=== PATIENT | female | born 1940 | race Caucasian/White ===

== ENCOUNTER 2016-05-20 10:56 | Emergency (ER) | payer MEDICARE, BC ==
[~2016-05-20] VITALS: Ht 152.4 cm; Wt 54.0 kg
[~2016-05-20 10:56] MED LIST: ACTO150T PO; BIOTCAP PO; FOLI1 PO; LEVO50TA4 PO; LORA-392 PO; PACE200T4 PO; RIVA20 PO; VITA-13
[2016-05-20 11:00] VITALS: BP 108/51; PULSE 71; RESP 18; TEMP 97.8; O2SAT 96
[2016-05-20] MEDS ORDERED: DICL75TA PO (11:23)
[2016-05-20] MEDS ORDERED: BIOT1SUB SL (11:23)
[2016-05-20] MEDS ORDERED: LORA1TAB12 PO (11:23)
[2016-05-20] MEDS ORDERED: CALC600T13 PO (11:23)
[2016-05-20] MEDS ORDERED: HYDR25TA5 PO (11:23)
[2016-05-20] MEDS ORDERED: LEUC5TAB PO (11:23)
[2016-05-20] MEDS ORDERED: TOFA1TAB PO (11:23)
[2016-05-20] MEDS ORDERED: ASPI81CH CHEW (11:23)
[2016-05-20] MEDS ORDERED: LEVO50TA4 PO (11:23)
[2016-05-20] MEDS ORDERED: D400400C PO (11:23)
[2016-05-20] MEDS ORDERED: METHPOW IM (11:23)
[2016-05-20] MEDS ORDERED: FOLI1TAB4 PO (11:23)
[2016-05-20] MEDS ORDERED: LISI40TA PO (11:23)
--- NOTE | 2016-05-20 11:23 | PD ---
HPI Chief Complaint: Fall Time Seen by Provider: 11:17 Travel History International Travel<30 days: No Contact w/Intl Traveler<30days: No Traveled to known affect area: No History of Present Illness HPI This patient had a fall last night. She tripped over a step and landed on outstretched left wrist. She complains of left wrist pain and swelling. It's worse with movement. She did not strike her head and has no head or neck pain. Severity is moderate. Duration is one day. She takes no blood thinners and has no orthopedist. PFSH Past Medical History Arthritis: Yes (RA) Atrial Fibrillation: Yes (ABLATION 08/2012, 05/27/13, HX OF CARDIOVERSION) Autoimmune Disease: Yes (RA) Heart Rhythm Problems: Yes (Afib) Cancer: Yes (cervical ca) Cardiovascular Problems: Yes (AFIB/ ABLASION) High Cholesterol: No Chemotherapy: No Chest Pain: No Congestive Heart Failure: No Diminished Hearing: No Endocrine: No Gastrointestinal Disorders: No Genitourinary: No Hypertension: Yes Immune Disorder: No Implanted Vascular Access Dvce: No Musculoskeletal: Yes Neurologic: No Psychiatric: No Reproductive: No Respiratory: No Immunizations Current: Yes Radiation Therapy: No Influenza Vaccination: Yes ?: Not Menopausal: Yes : 1 Para: 1 Past Surgical History Abdominal Surgery: No Cardiac Surgery: Yes (AFIB ABLATION X'S 2 ) Ear Surgery: No Endocrine Surgery: No Eye Surgery: No Genitourinary Surgery: No Gynecologic Surgery: Yes Hysterectomy: Yes (PARTIAL/CERVICAL CANCER) Neurologic Surgery: No Oral Surgery: No Thoracic Surgery: No Other Surgery: Yes Social History Alcohol Use: No Tobacco Use: No Substance Use: No Allergies-Medications (Allergen,Severity, Reaction): Coded Allergies: Advil (Verified Allergy, Severe, Anaphylaxis, 05/20/16) Codeine (Verified Allergy, Severe, NAUSEA, 05/20/16) Penicillin (Verified Allergy, Severe, HIVES, 05/20/16) Reported Meds & Prescriptions Reported Meds & Active Scripts Active Reported Xeljanz Xr (Tofacitinib ER) 11 Mg Tab 11 Mg PO DAILY Diclofenac Sodium DR (Diclofenac Sodium) 75 Mg Tabdr 75 Mg PO BID Lorazepam 1 Mg Tab 1 Mg PO TID PRN Leucovorin (Leucovorin Calcium) 5 Mg Tab 5 Mg PO TWICE WEEKLY Methotrexate 1 Pow Pow 15 Mg IM WEEKLY Folate (Folic Acid) 1 Mg Tab 1 Mg PO DAILY 6 days a week Calcium 600 Mg Tab 600 Mg PO DAILY Vitamin D3 400 (Cholecalciferol) 400 Unit Cap 800 Mg PO BID Biotin 5,000 Mcg Subl 5,000 Mcg SL Levothyroxine (Levothyroxine Sodium) 50 Mcg Tab 50 Mcg PO DAILY Aspirin 81 Mg Chew 81 Mg CHEW DAILY Lisinopril 40 Mg Tab 40 Mg PO DAILY Hydrochlorothiazide 25 Mg Tab 25 Mg PO DAILY Review of Systems General / Constitutional: No: Fever Eyes: No: Visual changes HENT: No: Headaches Cardiovascular: No: Chest Pain or Discomfort Respiratory: No: Shortness of Breath Gastrointestinal: No: Abdominal Pain Genitourinary: No: Dysuria Musculoskeletal: Positive: Arthralgias, Limited ROM, Pain Skin: No Rash Neurologic: No: Weakness Psychiatric: No: Depression Endocrine: No: Polydipsia Hematologic/Lymphatic: No: Easy Bruising Physical Exam Narrative GENERAL: Thin elderly well-developed patient in no apparent distress. SKIN: Warm and dry. HEAD: Atraumatic. Normocephalic. EYES: Pupils equal and round. No scleral icterus. No injection or drainage. ENT: No nasal bleeding or discharge. Mucous membranes pink and moist. NECK: Trachea midline. No JVD. CARDIOVASCULAR: Regular rate and rhythm. No murmur appreciated. RESPIRATORY: No accessory muscle use. Clear to auscultation. Breath sounds equal bilaterally. GASTROINTESTINAL: Abdomen soft, non-tender, nondistended. Hepatic and splenic margins not palpable. MUSCULOSKELETAL: Patient has swelling and slight deformity to the left wrist. There is ecchymosis and it is tender. No clubbing. No cyanosis. No edema. NEUROLOGICAL: Awake and alert. No obvious cranial nerve deficits. Motor grossly within normal limits. Normal speech. PSYCHIATRIC: Appropriate mood and affect; insight and judgment normal. Data Data Last Documented VS Vital Signs Date Time Temp Pulse Resp B/P Pulse Ox O2 Delivery O2 Flow Rate FiO2 05/20/16 11:00 97.8 71 18 108/51 96 Orders Wrist, Complete ([id number]) (05/20/16 ) Splint Or Brace Apply/Monitor (05/20/16 11:59) MDM Medical Decision Making Medical Screen Exam Complete: Yes Emergency Medical Condition: Yes Medical Record Reviewed: Yes Differential Diagnosis Wrist fracture, wrist dislocation, contusion Narrative Course I have reviewed the patient's electronic medical record. I reviewed her left wrist x-rays which show a comminuted distal radius fracture with minimal displacement I placed her in a left wrist sugar tong Removed her wedding ring Pain medicine written She will follow with orthopedist Diagnosis Primary Impression: Distal radius fracture, left Qualified Code: S52.532A - Closed Colles' fracture of left radius, initial encounter Additional Instructions: Follow-up with orthopedist Ice and elevate left wrist and wear splint The patient was warned about potential sedation for the medications they will receive on prescription. Med/Other Pt SpecificInfo: Prescription(s) given Scripts Oxycodone-Acetaminophen (Percocet)5-325 mg Tab1 Tab PO Q6H PRN (PAIN) #25 TAB Ref 0 Prov:Troy Sainz MD 05/20/16 Disposition: 01 DISCHARGE HOME Condition: Stable Troy Sainz MD May 20, 2016 11:23
--- NOTE | 2016-05-20 11:47 | RADHPO ---
EXAM DATE/TIME: 05/20/2016 11:25 [facility] COMPARISON: No previous studies available for comparison. INDICATIONS : Left wrist pain/swelling/bruising post fall. MEDICAL HISTORY : A-fib. SURGICAL HISTORY : None. ENCOUNTER: Initial ACUITY: 2 days PAIN SCORE: 10/10 LOCATION: Left wrist FINDINGS: There is a comminuted intra-articular fracture involving the distal radius. The fracture fragments ar e not significantly displaced. There is no joint dislocation. There is moderate diffuse primary degen erative changes involving the wrist. There is diffuse soft tissue swelling. CONCLUSION: Comminuted intra-articular fracture involving the distal radius. Jermain Soto MD on May 20, 2016 at 11:45 Board Certified Radiologist. This report was verified electronically.
[2016-05-20] MEDS ORDERED: PERC5TAB12 PO (12:02)
== END 2016-05-20 12:44 | disposition home or self-care (01) ==
LOC: PHED 10:56
DX: S52.502A Unspecified fracture of the lower end of left radius, initial encounter for closed fracture (principal); I48.91 Unspecified atrial fibrillation; M06.9 Rheumatoid arthritis, unspecified; I10 Essential (primary) hypertension; W10.8XXA Fall (on) (from) other stairs and steps, initial encounter; Y93.9 Activity, unspecified; Y92.9 Unspecified place or not applicable; Y99.9 Unspecified external cause status
CPT/HCPCS: 29125; 73110

== ENCOUNTER 2017-04-05 13:35 | Inpatient (IN) | payer MEDICARE, BC ==
[~2017-04-05] VITALS: Ht 152.4 cm; Wt 55.6 kg
[2017-04-05] VITALS (15 sets, daily range): BP systolic 90–217; BP diastolic 46–111; PULSE 46–150; RESP 16–22; TEMP 98.4–98.9; O2SAT 93–100
[~2017-04-05 13:35] MED LIST changes: -ACTO150T PO; +ASPI-516 CHEW; +BIOT1SUB SL; -BIOTCAP PO; +CALC600T13 PO; +D400400C PO; +DICL75TA PO; -FOLI1 PO; +FOLI1TAB4 PO; +HYDR25TA5 PO; +LEUC5TAB PO; +LISI40TA PO; -LORA-392 PO; +LORA1TAB12 PO; +METHPOW IM; -PACE200T4 PO; +PERC5TAB12 PO; -RIVA20 PO; +TOFA1TAB PO; -VITA-13
[2017-04-05] MEDS ORDERED: SODIUM CHLORIDE 0.9% FLUSH 10 ML FLUSH IV FLUSH PRN ×2 (14:00→16:15)
[2017-04-05] MEDS ORDERED: DILTIAZEM HCL 25 MG/5 ML VIAL IV PUSH ONE (14:00)
[2017-04-05] MEDS ORDERED: SODIUM CHLORIDE 0.9% FLUSH 10 ML FLUSH IVF PRN (14:00)
--- NOTE | 2017-04-05 14:05 | PD ---
HPI Chief Complaint: Cardiac Complaint Time Seen by Provider: 13:49 Travel History International Travel<30 days: No Contact w/Intl Traveler<30days: No Traveled to known affect area: No History of Present Illness HPI 76-year-old female presents to the emergency department for evaluation of atrial fibrillation. Patient states she has been in and out of A. fib for several hours, since 11 AM. Patient states she is currently on amiodarone as well as Cardizem. She took 2 doses of her amiodarone and her Cardizem this morning. She states that she has been going in and out of it constantly. This is unusual for her. Patient's pharmacy clinical specialist is Dr. Us. Patient denies any fevers or chills. No headache. She denies any chest pain or shortness of breath. No abdominal pain. No nausea, vomiting, diarrhea. Her only complaint at this time is palpitations. Upon my exam, her heart rate is 150. Moderate severity. No exacerbating or alleviating factors. PFSH Past Medical History Arthritis: Yes (RA) Atrial Fibrillation: Yes (ABLATION 08/2012, 05/27/13, HX OF CARDIOVERSION) Autoimmune Disease: Yes (RA) Heart Rhythm Problems: Yes (Afib) Cancer: Yes (cervical ca) Cardiovascular Problems: Yes (AFIB/ ABLASION) High Cholesterol: No Chemotherapy: No Chest Pain: No Congestive Heart Failure: No Diminished Hearing: No Endocrine: No Gastrointestinal Disorders: No Genitourinary: No Hypertension: Yes Immune Disorder: No Implanted Vascular Access Dvce: No Musculoskeletal: Yes Neurologic: No Psychiatric: No Reproductive: No Respiratory: No Immunizations Current: Yes Radiation Therapy: No ?: Not Menopausal: Yes : 1 Para: 1 Past Surgical History Abdominal Surgery: No Cardiac Surgery: Yes (AFIB ABLATION X'S 2 ) Ear Surgery: No Endocrine Surgery: No Eye Surgery: No Genitourinary Surgery: No Gynecologic Surgery: Yes Hysterectomy: Yes (PARTIAL/CERVICAL CANCER) Neurologic Surgery: No Oral Surgery: No Thoracic Surgery: No Other Surgery: Yes Social History Alcohol Use: No Tobacco Use: No Substance Use: No Allergies-Medications (Allergen,Severity, Reaction): Coded Allergies: codeine (Unverified Allergy, Severe, NAUSEA, 04/05/17) ibuprofen (Unverified Allergy, Severe, Anaphylaxis, 12/17/17) penicillin G (Unverified Allergy, Severe, HIVES, 04/05/17) Reported Meds & Prescriptions Reported Meds & Active Scripts Active Reported Amiodarone (Amiodarone HCl) 200 Mg Tab 200 Mg PO DAILY Xeljanz Xr (Tofacitinib ER) 11 Mg Tab 11 Mg PO DAILY Lorazepam 1 Mg Tab 1 Mg PO TID PRN Vitamin D3 400 (Cholecalciferol) 400 Unit Cap 800 Mg PO BID Biotin 5,000 Mcg Subl 5,000 Mcg SL Levothyroxine (Levothyroxine Sodium) 50 Mcg Tab 50 Mcg PO DAILY Aspirin 81 Mg Chew 81 Mg CHEW DAILY Lisinopril 40 Mg Tab 40 Mg PO DAILY Hydrochlorothiazide 25 Mg Tab 25 Mg PO DAILY Review of Systems Except as stated in HPI: all other systems reviewed are Neg Physical Exam Narrative GENERAL: Well-nourished, well-developed female patient, ambulatory. Afebrile. SKIN: Focused skin assessment warm/dry. HEAD: Normocephalic. Atraumatic. EYES: No scleral icterus. No injection or drainage. NECK: Supple, trachea midline. No JVD or lymphadenopathy. CARDIOVASCULAR: Regular rate and rhythm without murmurs, gallops, or rubs. Bilateral radial and pedal pulses are 2+. RESPIRATORY: Breath sounds equal bilaterally. No accessory muscle use. Lungs sounds are clear to auscultation GASTROINTESTINAL: Abdomen soft, non-tender, nondistended. MUSCULOSKELETAL: No cyanosis, or edema. BACK: Nontender without obvious deformity. No CVA tenderness. Data Data Last Documented VS Vital Signs Date Time Temp Pulse Resp B/P (MAP) Pulse Ox O2 Delivery O2 Flow Rate FiO2 04/05/17 14:42 91 17 100 04/05/17 14:19 Room Air 04/05/17 13:37 98.6 Orders Orders Electrocardiogram (04/05/17 13:59) Basic Metabolic Panel (Bmp) (04/05/17 13:59) Ckmb (Isoenzyme) Profile (04/05/17 13:59) Complete Blood Count With Diff (04/05/17 13:59) Magnesium (Mg) (04/05/17 13:59) Prothrombin Time / Inr (Pt) (04/05/17 13:59) Act Partial Throm Time (Ptt) (04/05/17 13:59) Troponin I (04/05/17 13:59) Chest, Single Ap (04/05/17 13:59) Ecg Monitoring (04/05/17 13:59) Bilateral Bp Monitoring (04/05/17 13:59) Iv Access Insert/Monitor (04/05/17 13:59) Oximetry (04/05/17 13:59) Oxygen Administration (04/05/17 13:59) Sodium Chloride 0.9% Flush (Ns Flush) (04/05/17 14:00) Diltiazem Inj (Cardizem Inj) (04/05/17 14:00) Sodium Chloride 0.9% Flush (Ns Flush) (04/05/17 14:00) CKMB (04/05/17 14:10) CKMB% (04/05/17 14:10) Diltiazem Inj (Cardizem Inj) (04/05/17 15:00) Diltiazem Inj (Cardizem Inj) (04/05/17 15:45) Admit Order (Ed Use Only) (04/05/17 15:53) Labs Laboratory Tests Test 04/05/17 14:10 White Blood Count 6.6 TH/MM3 Red Blood Count 3.84 MIL/MM3 Hemoglobin 13.0 GM/DL Hematocrit 37.9 % Mean Corpuscular Volume 98.7 FL Mean Corpuscular Hemoglobin 33.9 PG Mean Corpuscular Hemoglobin Concent 34.3 % Red Cell Distribution Width 15.0 % Platelet Count 309 TH/MM3 Mean Platelet Volume 8.0 FL Neutrophils (%) (Auto) 66.5 % Lymphocytes (%) (Auto) 18.7 % Monocytes (%) (Auto) 13.1 % Eosinophils (%) (Auto) 0.8 % Basophils (%) (Auto) 0.9 % Neutrophils # (Auto) 4.4 TH/MM3 Lymphocytes # (Auto) 1.2 TH/MM3 Monocytes # (Auto) 0.9 TH/MM3 Eosinophils # (Auto) 0.1 TH/MM3 Basophils # (Auto) 0.1 TH/MM3 CBC Comment DIFF FINAL Differential Comment Prothrombin Time 10.0 SEC Prothromb Time International Ratio 1.0 RATIO Activated Partial Thromboplast Time 25.2 SEC Blood Urea Nitrogen 12 MG/DL Creatinine 1.10 MG/DL Random Glucose 99 MG/DL Calcium Level 9.2 MG/DL Magnesium Level 2.1 MG/DL Sodium Level 127 MEQ/L Potassium Level 3.9 MEQ/L Chloride Level 93 MEQ/L Carbon Dioxide Level 25.9 MEQ/L Anion Gap 8 MEQ/L Estimat Glomerular Filtration Rate 49 ML/MIN Total Creatine Kinase 269 U/L Creatine Kinase MB 4.2 NG/ML Creatine Kinase MB % 1.6 % Troponin I LESS THAN 0.02 NG/ML MDM Medical Decision Making Medical Screen Exam Complete: Yes Emergency Medical Condition: Yes Medical Record Reviewed: Yes Interpretation(s) chest x-ray - CONCLUSION: Normal examination. Differential Diagnosis A. fib with RVR versus SVT versus arrhythmia versus ACS Narrative Course 36-year-old female presents to the emergency department for evaluation of palpitations, feeling she's has been going in and out of A. fib this morning. EKG shows possible A. fib/flutter, heart rate 140. CBC, BMP, CK, troponin, magnesium, PTT, PTT/INR, chest x-ray ordered and pending. Patient is given Cardizem 0.25 mg/kg. CBC shows no acute abnormality. BMP shows hyponatremia of 127. CK is 269. Troponin is less than 0.02. Magnesium is 2.1. Coags are unremarkable. Chest x -ray is normal. Patient's heart rate initially went to the 90s. However, shortly after, her heart rate went up to 140. Patient is given second dose of Cardizem. She is given 20 mg IV. Cardizem drip was initiated. [facility] is paged for admission. Dr. Hathaway accepted admission. Diagnosis Primary Impression: Atrial fibrillation with RVR Admitting Information Admitting Physician Requests: Admit Gilda Bell Apr 05, 2017 14:05
--- NOTE | 2017-04-05 14:13 | RADRPT ---
EXAM DATE/TIME: 04/05/2017 14:07 [facility] COMPARISON: CHEST SINGLE AP, March 29, 2015, 11:27. INDICATIONS : Chest pain MEDICAL HISTORY : Afib SURGICAL HISTORY : None. ENCOUNTER: Initial ACUITY: 1 day PAIN SCORE: 0/10 LOCATION: Bilateral chest FINDINGS: A single view of the chest demonstrates the lungs to be symmetrically aerated without evidence of mas s, infiltrate or effusion. The cardiomediastinal contours are unremarkable. Osseous structures are intact. CONCLUSION: Normal examination. Mark Llanes MD on April 05, 2017 at 14:11 Board Certified Radiologist. This report was verified electronically.
[2017-04-05] MEDS ORDERED: AMIO200T PO (14:25)
[2017-04-05 14:27] LABS: AUTOMATED NEUTROPHIL # 4.4 TH/MM3 (1.8-7.7); BASOPHIL # 0.1 TH/MM3 (0-0.2); BASOPHIL % 0.9 % (0.0-2.0); EOSINOPHIL # 0.1 TH/MM3 (0-0.4); EOSINOPHIL % 0.8 % (0.0-4.0); HEMATOCRIT 37.9 % (35.0-46.0); HEMO FLAGS DIFF FINAL; LYMPH % 18.7 % (9.0-44.0); LYMPHOCYTE # 1.2 TH/MM3 (1.0-4.8); MEAN CELL VOLUME 98.7 FL (80.0-100.0); MEAN CORPUSCULAR HEMOGLOBIN 33.9 PG (27.0-34.0); MEAN CORPUSCULAR HGB CONC 34.3 % (32.0-36.0); MONO % 13.1 % (0.0-8.0); NEUT % 66.5 % (16.0-70.0); PLATELET COUNT 309 TH/MM3 (150-450); RED BLOOD COUNT 3.84 MIL/MM3 (4.00-5.30); WHITE BLOOD COUNT 6.6 TH/MM3 (4.0-11.0)
[2017-04-05 14:35] LABS: APTT (PATIENT) 25.2 SEC (24.3-30.1)
[2017-04-05 14:44] LABS: CREATINE KINASE 269 U/L (26-192)
[2017-04-05 14:52] LABS: ANION GAP 8 MEQ/L (5-15); BICARBONATE 25.9 MEQ/L (21.0-32.0); BLOOD UREA NITROGEN 12 MG/DL (7-18); CHLORIDE 93 MEQ/L (98-107); GLOMERULAR FILTRATION RATE 49 ML/MIN (>89); MAGNESIUM 2.1 MG/DL (1.5-2.5); POTASSIUM 3.9 MEQ/L (3.5-5.1); SODIUM (NA) 127 MEQ/L (136-145)
[2017-04-05 14:56] LABS: CKMB 4.2 NG/ML (0.5-3.6)
[2017-04-05] MEDS ORDERED: DILTIAZEM INJ 125 MG in SODIUM CHLORIDE 0.9% INJ 100 ML IV PRN (15:00)
[2017-04-05] MEDS ORDERED: DILTIAZEM HCL 50 MG/10 ML VIAL IV PUSH ONE (15:15)
[2017-04-05] MEDS ORDERED: DILTIAZEM HCL 25 MG/5 ML VIAL IV ONE (15:45)
--- NOTE | 2017-04-05 16:05 | HHI.HP ---
HPI Service [facility] Primary Care Physician Donavan Gonzalez M.D. Admission Diagnosis atrial fibrillation with RVR Diagnoses: (1) Atrial fibrillation with RVR Diagnosis: Principal Chief Complaint: In and out of afib Travel History International Travel<30 Days: No Contact w/Intl Traveler <30 Da: No Traveled to Known Affected Are: No History of Present Illness Written by Kasie Stout, acting as scribe for Dr. Hathaway on 04/05/17 at 17:14. 76-year-old female with past medical history significant for atrial fibrillation, hypertension, hypothyroidism, cervical cancer, and rheumatoid arthritis. Patient has undergone 2 ablations with eversion in the past. Patient reports that for the past week she has felt she has gone into atrial fibrillation with no prolonged duration. However since 11 AM this morning felt as if this was not resolving so she came to the ED for evaluation. Patient reports that during episodes she feels tired but no lightheadedness, syncope, shortness of breath, or chest pains. She states that her regular supervisor grower is Dr. Us who recently saw her this past Thursday and adjusted her blood pressure medication her blood pressure medications. Patient repots she was previously anticoagulated on serial toe, however was switched over to 81 mg of aspirin daily her supervisor grower. She denies any weakness or visual changes. She denies any other changes to her medications. Patient is seen and examined in ED stretcher in no acute distress, no shortness of breath, chest pains, nausea, vomiting, or diarrhea. Denies recent illness fever or chills. Review of Systems Cardiovascular: COMPLAINS OF: Palpitations Except as stated in HPI: all other systems reviewed are Neg Past Family Social History Past Medical History Atrial fibrillation with cardioversion and ablation in the past HTN Hypothyroidism Cervical cancer in 1972 RA Past Surgical History Ablation in August 2012 and May 2013 Reported Medications Reported Meds & Active Scripts Active Reported Amiodarone (Amiodarone HCl) 200 Mg Tab 200 Mg PO DAILY Xeljanz Xr (Tofacitinib ER) 11 Mg Tab 11 Mg PO DAILY Lorazepam 1 Mg Tab 1 Mg PO TID PRN Vitamin D3 400 (Cholecalciferol) 400 Unit Cap 800 Mg PO BID Biotin 5,000 Mcg Subl 5,000 Mcg SL Levothyroxine (Levothyroxine Sodium) 50 Mcg Tab 50 Mcg PO DAILY Aspirin 81 Mg Chew 81 Mg CHEW DAILY Lisinopril 40 Mg Tab 40 Mg PO DAILY Hydrochlorothiazide 25 Mg Tab 25 Mg PO DAILY Allergies: Coded Allergies: codeine (Unverified Allergy, Severe, NAUSEA, 04/05/17) ibuprofen (Unverified Allergy, Severe, Anaphylaxis, 04/05/17) penicillin G (Unverified Allergy, Severe, HIVES, 04/05/17) Family History Mother: [email or web address] Brother: kimberley Physical Exam Vital Signs Vital Signs Date Time Temp Pulse Resp B/P (MAP) Pulse Ox O2 Delivery O2 Flow Rate FiO2 04/05/17 14:42 91 17 100 04/05/17 14:19 99 Room Air 04/05/17 14:19 93 18 158/75 (102) 98 Room Air 04/05/17 13:37 98.6 150 22 217/111 (146) 99 Room Air Physical Exam GENERAL: This is a well-nourished, well-developed patient, in no apparent distress. SKIN: Small scattered ecchymoses over bilateral forearms and lower legs. Cool and dry. HEAD: Atraumatic. Normocephalic. No temporal or scalp tenderness. EYES: Pupils equal round and reactive. Extraocular motions intact. No scleral icterus. No injection or drainage. ENT: Nose without bleeding, purulent drainage or septal hematoma. Uvula midline. Airway patent. NECK: Trachea midline. No JVD or lymphadenopathy. Supple. CARDIOVASCULAR: Irregular rate and rhythm without murmurs, gallops, or rubs. RESPIRATORY: Clear to auscultation. Breath sounds equal bilaterally. No wheezes , rales, or rhonchi. GASTROINTESTINAL: Abdomen soft, non-tender, nondistended. MUSCULOSKELETAL: Extremities without clubbing, cyanosis, or edema. No joint tenderness, effusion, or edema noted, bilateral hand joint changes from RA. NEUROLOGICAL: Awake and alert. Cranial nerves II through XII intact. Motor and sensory grossly within normal limits. Five out of 5 muscle strength in all muscle groups. Normal speech, no facial droop noted. Laboratory Laboratory Tests Test 04/05/17 14:10 White Blood Count 6.6 Red Blood Count 3.84 Hemoglobin 13.0 Hematocrit 37.9 Mean Corpuscular Volume 98.7 Mean Corpuscular Hemoglobin 33.9 Mean Corpuscular Hemoglobin Concent 34.3 Red Cell Distribution Width 15.0 Platelet Count 309 Mean Platelet Volume 8.0 Neutrophils (%) (Auto) 66.5 Lymphocytes (%) (Auto) 18.7 Monocytes (%) (Auto) 13.1 Eosinophils (%) (Auto) 0.8 Basophils (%) (Auto) 0.9 Neutrophils # (Auto) 4.4 Lymphocytes # (Auto) 1.2 Monocytes # (Auto) 0.9 Eosinophils # (Auto) 0.1 Basophils # (Auto) 0.1 CBC Comment DIFF FINAL Differential Comment Prothrombin Time 10.0 Prothromb Time International Ratio 1.0 Activated Partial Thromboplast Time 25.2 Blood Urea Nitrogen 12 Creatinine 1.10 Random Glucose 99 Calcium Level 9.2 Magnesium Level 2.1 Sodium Level 127 Potassium Level 3.9 Chloride Level 93 Carbon Dioxide Level 25.9 Anion Gap 8 Estimat Glomerular Filtration Rate 49 Total Creatine Kinase 269 Creatine Kinase MB 4.2 Creatine Kinase MB % 1.6 Troponin I LESS THAN 0.02 Result Diagram: 04/05/17 1410 04/05/17 1410 Imaging Last Impressions Chest X-Ray 04/05/17 1359 Signed Impressions: Service Date/Time: Wednesday, April 05, 2017 14:07 - CONCLUSION: Normal examination. MD Susan Sargent VTE Risk Assessment Susan VTE Risk Assessment: Mod/High Risk (score >= 2) Caprini Risk Assessment Model Point Value = 1 Point Value = 2 Point Value = 3 Point Value = 5 Age 41-60 Minor surgery BMI > 25 kg/m2 Swollen legs Varicose veins or History of unexplained or recurrent spontaneous Oral contraceptives or hormone replacement Sepsis (< 1 month) Serious lung disease, including pneumonia (< 1 month) Abnormal pulmonary function Acute myocardial infarction Congestive heart failure (< 1 month) History of inflammatory bowel disease Medical patient at bed rest Age 61-74 Arthroscopic surgery Major open surgery (> 45 min) Laparoscopic surgery (> 45 min) Malignancy Confined to bed (> 72 hours) Immobilizing plaster cast Central venous access Age >= 75 History of VTE Family history of VTE Factor V Leiden Prothrombin [id number] Lupus anticoagulant Anticardiolipin antibodies Elevated serum homocysteine Heparin-induced thrombocytopenia Other congenital or acquired thrombophilia Stroke (< 1 month) Elective arthroplasty Hip, pelvis, or leg fracture Acute spinal cord injury (< 1 month) Prophylaxis Regimen Total Risk Factor Score Risk Level Prophylaxis Regimen 0-1 Low Early ambulation 2 Moderate Order ONE of the following: *Sequential Compression Device (SCD) *Heparin 5000 units SQ BID 3-4 Higher Order ONE of the following medications: *Heparin 5000 units SQ TID *Enoxaparin/Lovenox 40 mg SQ daily (WT < 150 kg, CrCl > 30 mL/min) *Enoxaparin/Lovenox 30 mg SQ daily (WT < 150 kg, CrCl > 10-29 mL/min) *Enoxaparin/Lovenox 30 mg SQ BID (WT < 150 kg, CrCl > 30 mL/min) AND/OR *Sequential Compression Device (SCD) 5 or more Highest Order ONE of the following medications: *Heparin 5000 units SQ TID (Preferred with Epidurals) *Enoxaparin/Lovenox 40 mg SQ daily (WT < 150 kg, CrCl > 30 mL/min) *Enoxaparin/Lovenox 30 mg SQ daily (WT < 150 kg, CrCl > 10-29 mL/min) *Enoxaparin/Lovenox 30 mg SQ BID (WT < 150 kg, CrCl > 30 mL/min) AND *Sequential Compression Device (SCD) Assessment and Plan Problem List: (1) Atrial fibrillation with RVR ICD Code: I48.91 - Unspecified atrial fibrillation Status: Acute Assessment and Plan 76-year-old female with past medical history significant for atrial fibrillation, hypertension, hypothyroidism, cervical cancer, and rheumatoid arthritis. Patient has undergone 2 ablations with eversion in the past. Patient reports that for the past week she has felt she has gone into atrial fibrillation with no prolonged duration. However since 11 AM this morning felt as if this was not resolving so she came to the ED for evaluation. Afib with RVR, rate uncontrolled - Patient has a history of afib, on amiodarone and diltiazem at home. - Rate was provided with one bolus of diltiazem with initial response however HR increased once again while in ED. Second bolus of Diltazem administered and started on diltiazem gtt, admit to inpatient [facility]. - Titrate gtt for HR control - Restart P.O. Amiodarone - Consult cardiology, appreciate recommendation - CHADs2-VASc score 3, will defer anticoagulation to cardiology recommendations. - Continue 81mg ASA for now HTN, hypertensive - Resume home does of lisinopril, hydrochlorothiazide. - Continue monitoring BP trends Hyponatremia, acute - Sodium 127, recheck labs tomorrow - Heart healthy diet. Hypothyroidism, chronic - Resume levothyroxine dose. VTE - Lovenox Sq This note was transcribed by ROXIE Craven. I, Dr. Edith Hathaway personally performed the history, physical exam, and medical decision making; and confirmed the accuracy of the information in the transcribed note. Authenticated by Dr. Edith Hathaway on 04/05/17 at 17:14. Code Status Full code Discussed Condition With Discussed with ED ELZA Physician Certification 2 Midnight Certification Type: Admission for Inpatient Services Order for Inpatient Services The services are ordered in accordance with Medicare regulations or non- Medicare payer requirements, as applicable. In the case of services not specified as inpatient-only, they are appropriately provided as inpatient services in accordance with the 2-midnight benchmark. Estimated LOS (days): 3 days is the estimated time the patient will need to remain in the hospital, assuming treatment plan goals are met and no additional complications. Post-Hospital Plan: Home Kasie Stout Apr 05, 2017 16:05 Edith Hathaway MD Apr 05, 2017 18:09
[2017-04-05] MEDS ORDERED: BISACODYL 10 MG SUPP RECTAL PRN (16:15)
[2017-04-05] MEDS ORDERED: ONDANSETRON HCL 4 MG/2 ML VIAL IVP PRN (16:15)
[2017-04-05] MEDS ORDERED: LACTULOSE SYRUP 20 GM/30 ML CUP PO PRN (16:15)
[2017-04-05] MEDS ORDERED: SENNOSIDES 8.6 MG TAB PO PRN (16:15)
[2017-04-05] MEDS ORDERED: ACETAMINOPHEN 325 MG TAB PO PRN (16:15)
[2017-04-05] MEDS ORDERED: TEMAZEPAM 15 MG CAP PO PRN (16:15)
[2017-04-05] MEDS ORDERED: NALOXONE HCL 0.4 MG/ML AMP IV PUSH PRN (16:15)
[2017-04-05] MEDS ORDERED: MAGNESIUM HYDROXIDE SUSP 30 ML CUP PO PRN (16:15)
[2017-04-05] MEDS ORDERED: LORazepam 1 MG TAB PO PRN (16:15)
--- NOTE | 2017-04-05 16:45 | PD ---
Data Data Last Documented VS Vital Signs Date Time Temp Pulse Resp B/P (MAP) Pulse Ox O2 Delivery O2 Flow Rate FiO2 04/05/17 14:42 91 17 100 04/05/17 14:19 Room Air 04/05/17 13:37 98.6 Orders Orders Electrocardiogram (04/05/17 13:59) Basic Metabolic Panel (Bmp) (04/05/17 13:59) Ckmb (Isoenzyme) Profile (04/05/17 13:59) Complete Blood Count With Diff (04/05/17 13:59) Magnesium (Mg) (04/05/17 13:59) Prothrombin Time / Inr (Pt) (04/05/17 13:59) Act Partial Throm Time (Ptt) (04/05/17 13:59) Troponin I (04/05/17 13:59) Chest, Single Ap (04/05/17 13:59) Ecg Monitoring (04/05/17 13:59) Bilateral Bp Monitoring (04/05/17 13:59) Iv Access Insert/Monitor (04/05/17 13:59) Oximetry (04/05/17 13:59) Oxygen Administration (04/05/17 13:59) Sodium Chloride 0.9% Flush (Ns Flush) (04/05/17 14:00) Diltiazem Inj (Cardizem Inj) (04/05/17 14:00) Sodium Chloride 0.9% Flush (Ns Flush) (04/05/17 14:00) CKMB (04/05/17 14:10) CKMB% (04/05/17 14:10) Diltiazem Inj (Cardizem Inj) (04/05/17 15:00) Diltiazem Inj (Cardizem Inj) (04/05/17 15:45) Admit Order (Ed Use Only) (04/05/17 15:53) Labs Laboratory Tests Test 04/05/17 14:10 White Blood Count 6.6 TH/MM3 Red Blood Count 3.84 MIL/MM3 Hemoglobin 13.0 GM/DL Hematocrit 37.9 % Mean Corpuscular Volume 98.7 FL Mean Corpuscular Hemoglobin 33.9 PG Mean Corpuscular Hemoglobin Concent 34.3 % Red Cell Distribution Width 15.0 % Platelet Count 309 TH/MM3 Mean Platelet Volume 8.0 FL Neutrophils (%) (Auto) 66.5 % Lymphocytes (%) (Auto) 18.7 % Monocytes (%) (Auto) 13.1 % Eosinophils (%) (Auto) 0.8 % Basophils (%) (Auto) 0.9 % Neutrophils # (Auto) 4.4 TH/MM3 Lymphocytes # (Auto) 1.2 TH/MM3 Monocytes # (Auto) 0.9 TH/MM3 Eosinophils # (Auto) 0.1 TH/MM3 Basophils # (Auto) 0.1 TH/MM3 CBC Comment DIFF FINAL Differential Comment Prothrombin Time 10.0 SEC Prothromb Time International Ratio 1.0 RATIO Activated Partial Thromboplast Time 25.2 SEC Blood Urea Nitrogen 12 MG/DL Creatinine 1.10 MG/DL Random Glucose 99 MG/DL Calcium Level 9.2 MG/DL Magnesium Level 2.1 MG/DL Sodium Level 127 MEQ/L Potassium Level 3.9 MEQ/L Chloride Level 93 MEQ/L Carbon Dioxide Level 25.9 MEQ/L Anion Gap 8 MEQ/L Estimat Glomerular Filtration Rate 49 ML/MIN Total Creatine Kinase 269 U/L Creatine Kinase MB 4.2 NG/ML Creatine Kinase MB % 1.6 % Troponin I LESS THAN 0.02 NG/ML MDM Supervised Visit with GERARDO: Yes Narrative Course The history, exam, and medical decision-making in the associated midlevel provider note were completed with my assistance. I reviewed and agree with the findings presented. I attest that I had a [id number] encounter with the patient on the same day, and personally performed and documented my assessment and findings in the medical record. *My assessment and Findings: This is a 76-year-old female who has a history of recurrent atrial fibrillation with RVR status post 2 ablations and a cardioversion in the past who presents to the emergency department with persistent rapid heart rate over the past 24 hours. She is in atrial fibrillation with rapid ventricular response. Labs are reassuring. She is given 1 diltiazem bolus and then started on an infusion and her heart rate was better controlled. Patient will be admitted for cardiology evaluation. Diagnosis Primary Impression: Atrial fibrillation with RVR Maryam Maria MD Apr 05, 2017 16:45
[2017-04-05] MEDS ORDERED: ENOXAPARIN SODIUM 40 MG/0.4 ML SYRINGE SQ SCH (17:00)
[2017-04-05] MEDS ORDERED: CHOLECALCIFEROL PO SCH (21:00)
[2017-04-05] MEDS: SODIUM CHLORIDE 0.9% FLUSH 10 ML FLUSH IV FLUSH SCH (21:00)
[2017-04-05] MEDS: DOCUSATE SODIUM 50 MG/SENNA 8.6 MG TAB PO SCH (21:27)
[2017-04-05] MEDS: CHOLECALCIFEROL (VIT D3) 400 UNIT TAB PO SCH (21:28)
[2017-04-05] MEDS ORDERED: SODIUM CHLOR 0.9% 1000 ML INJ 1,000 ML IV ONE (22:45)
[2017-04-05] MEDS: SODIUM CHLOR 0.9% 1000 ML INJ 1,000 ML IV SCH (23:42)
[2017-04-06] VITALS (16 sets, daily range): BP systolic 111–159; BP diastolic 62–70; PULSE 48–66; RESP 16–18; TEMP 98.2–98.3; O2SAT 97–98
[2017-04-06] MEDS ORDERED: LEVOTHYROXINE SODIUM 50 MCG TAB PO SCH (06:00)
[2017-04-06 06:50] LABS: AUTOMATED NEUTROPHIL # 4.3 TH/MM3 (1.8-7.7); BASOPHIL % 0.7 % (0.0-2.0); EOSINOPHIL % 0.8 % (0.0-4.0); HEMATOCRIT 31.2 % (35.0-46.0); HEMO FLAGS DIFF FINAL; LYMPH % 13.7 % (9.0-44.0); LYMPHOCYTE # 0.8 TH/MM3 (1.0-4.8); MEAN CELL VOLUME 97.5 FL (80.0-100.0); MEAN CORPUSCULAR HEMOGLOBIN 33.7 PG (27.0-34.0); MEAN CORPUSCULAR HGB CONC 34.6 % (32.0-36.0); MONO % 13.3 % (0.0-8.0); NEUT % 71.5 % (16.0-70.0); PLATELET COUNT 260 TH/MM3 (150-450); RED CELL DISTRIBUTION WIDTH 15.1 % (11.6-17.2); WHITE BLOOD COUNT 6.1 TH/MM3 (4.0-11.0)
[2017-04-06 07:11] LABS: BICARBONATE 24.1 MEQ/L (21.0-32.0); POTASSIUM 4.1 MEQ/L (3.5-5.1)
[2017-04-06] MEDS ORDERED: NON-FORMULARY DRUG (Lisinopril 40 MG) PO SCH (09:00)
[2017-04-06] MEDS ORDERED: HYDROCHLOROTHIAZIDE 25 MG TAB PO SCH (09:00)
[2017-04-06] MEDS ORDERED: ASPIRIN 81 MG CHEW TAB CHEW SCH (09:00)
[2017-04-06] MEDS: SODIUM CHLORIDE 0.9% FLUSH 10 ML FLUSH IV FLUSH SCH (09:00)
[2017-04-06] MEDS ORDERED: TOFACITINIB 11 MG PO SCH ×2 (09:00)
[2017-04-06] MEDS ORDERED: LISINOPRIL 20 MG TAB PO SCH (09:00)
[2017-04-06] MEDS: SODIUM CHLOR 0.9% 1000 ML INJ 1,000 ML IV SCH (09:00)
[2017-04-06] MEDS ORDERED: AMIODARONE 200 MG TAB PO SCH (09:00)
[2017-04-06] MEDS: DOCUSATE SODIUM 50 MG/SENNA 8.6 MG TAB PO SCH (09:27)
[2017-04-06] MEDS: CHOLECALCIFEROL (VIT D3) 400 UNIT TAB PO SCH (09:27)
--- NOTE | 2017-04-06 11:28 | HHI.PR ---
Subjective Remarks Asypmtomatic. Appears to be in NSR rate in 50s. Objective Vitals Vital Signs Date Time Temp Pulse Resp B/P (MAP) Pulse Ox O2 Delivery O2 Flow Rate FiO2 04/06/17 08:30 98.3 66 18 159/70 (99) 97 04/06/17 07:01 53 04/06/17 06:00 62 04/06/17 05:00 48 04/06/17 04:00 62 04/06/17 03:00 48 16 111/62 (78) 98 04/06/17 03:00 54 04/06/17 02:00 50 04/06/17 01:00 48 04/06/17 00:00 50 04/05/17 23:00 46 04/05/17 23:00 50 20 90/46 (61) 95 04/05/17 22:00 64 04/05/17 21:00 64 04/05/17 20:00 80 04/05/17 19:30 98.4 67 16 115/70 (85) 97 04/05/17 19:00 87 04/05/17 18:00 98.9 96 16 151/79 (103) 93 04/05/17 17:58 04/05/17 17:39 89 134/61 (85) 04/05/17 17:16 100 156/100 (118) 150/76 (100) 04/05/17 17:07 98 17 169/100 (123) 100 Room Air 04/05/17 16:49 107 20 97 04/05/17 16:40 100 21 04/05/17 16:23 105 159/70 04/05/17 14:42 91 17 100 04/05/17 14:19 99 Room Air 04/05/17 14:19 93 18 158/75 (102) 98 Room Air 04/05/17 13:37 98.6 150 22 217/111 (146) 99 Room Air I/O 04/05/17 04/05/17 04/05/17 04/06/17 04/06/17 04/06/17 07:00 15:00 23:00 07:00 15:00 23:00 Intake Total 1480 ml Output Total 600 ml Balance 880 ml Intake Oral 480 ml IV Total 1000 ml Output Urine Total 600 ml # Bowel Movements 0 Result Diagram: 04/06/17 0517 04/06/17 0512 Objective Remarks GENERAL: Well-nourished, well-developed patient. SKIN: Warm and dry. HEAD: Normocephalic. EYES: No scleral icterus. No injection or drainage. NECK: Supple, trachea midline. No JVD or lymphadenopathy. CARDIOVASCULAR: Regular rate and rhythm without murmurs, gallops, or rubs. RESPIRATORY: Breath sounds equal bilaterally. No accessory muscle use. GASTROINTESTINAL: Abdomen soft, non-tender, nondistended. EXTREMITIES: No cyanosis, or edema. NEUROLOGICAL: Awake, alert, and oriented x 3. Non-focal. A/P Problem List: (1) Atrial fibrillation with RVR ICD Code: I48.91 - Unspecified atrial fibrillation Status: Acute Assessment and Plan 76-year-old female with past medical history significant for atrial fibrillation, hypertension, hypothyroidism, cervical cancer, and rheumatoid arthritis. Patient has undergone 2 ablations with eversion in the past. Patient reports that for the past week she has felt she has gone into atrial fibrillation with no prolonged duration. However since 11 AM this morning felt as if this was not resolving so she came to the ED for evaluation. Afib with RVR, resolved - s/p ablations in past by Dr. Us - Patient has a history of afib, on amiodarone and diltiazem at home. - cont P.O. Amiodarone - Consult cardiology, appreciate recommendation - CHADs2-VASc score 3, will defer anticoagulation to cardiology recommendations. - Continue 81mg ASA for now HTN, hypertensive - Resume home does of lisinopril, hydrochlorothiazide. - Continue monitoring BP trends Hyponatremia, acute - na improved to 130 today recheck labs tomorrow - Heart healthy diet. Hypothyroidism, chronic - Resume levothyroxine dose. VTE px - Lovenox Sq Rosa Maria Alcala MD Apr 06, 2017 11:28
[2017-04-06] MEDS ORDERED: ASPI-183 PO (14:21)
--- NOTE | 2017-04-06 15:36 | EKG ---
Date Performed: 04/05/2017 Time Performed: 14:00:33 PTAGE: 76 years EKG: SINUS TACHYCARDIA, POSSIBLE ATRIAL FLUTTER INCOMPLETE RIGHT BUNDLE BRANCH BLOCK NONSPECIFIC ST & T-WAVE ABNORMALITY ABNORMAL RHYTHM ECG Compared to PREVIOUS TRACING , there is now evidence of sinus tachycardia with occasional PVCs. Ische ronnie changes are noted inferiorly and anterolaterally. Clinical correlation recommended. PREVIOUS TRAC IN04/24/2015 03.38 DOCTOR: Agustín Kline Interpretating Date/Time 04/06/2017 15:34:43
--- NOTE | 2017-04-07 11:33 | MB ---
cc: JOSE RODNEY M.D. DATE OF CONSULTATION April 06, 2017 ELECTROPHYSIOLOGY CONSULT REASON FOR CONSULTATION Atrial fibrillation with fast ventricular response. HISTORY OF PRESENT ILLNESS Mrs. Rasheed is a 76-year-old female with a history of atrial fibrillation. She has a previous ablation around 4 years ago. She was put on flecainide. She has on and off episodes of tachyarrhythmia. She was admitted to the emergency room due to atrial fibrillation with fast ventricular response. Through the hospitalization her condition significantly improved. I was consulted for evaluation and management. The chart was reviewed. The patient was evaluated. ALLERGIES CODEINE. IBUPROFEN. PENICILLIN. SOCIAL HISTORY The patient stopped smoking and drinking. FAMILY HISTORY Noncontributory to her current medical condition. HOME MEDICATIONS 1. Amiodarone 200 mg a day. 2. Lisinopril 20 mg a day. 3. Aspirin. 4. Lorazepam. 5. Hydrochlorothiazide. 6. Levoxyl. REVIEW OF SYSTEMS She refers no chest pain, no chest discomfort currently. No vomiting. No fever. No palpitation. PHYSICAL EXAMINATION GENERAL: Alert, fully oriented. VITAL SIGNS: Her blood pressure is 115/70, pulse 66, respiratory rate 18. LUNGS: Ventilated. CARDIOVASCULAR: S1-S2, regular. No gallop. ABDOMEN: Soft. No mass. No bruit. EXTREMITIES: With no edema. ELECTROCARDIOGRAM Indicates possible atrial tachyarrhythmia and PACs. Diffuse ST changes. LABORATORY DATA Hemoglobin is 13.0, white blood cells 6.6. Potassium 3.9, creatinine 1.10. Troponin less than 0.02. Magnesium 2.1. ASSESSMENT AND RECOMMENDATIONS Mrs. Rasheed currently is stable. She is in sinus rhythm. Heart rate controlled. She still refused anticoagulation. For now she wants to stay on aspirin. She is aware of the risks of stroke. Her case was extensively discussed with her as well as Dr. Alcala over the phone. The patient can be discharged home, Will be follow at the office as an outpatient. Ablation discussed but the patient has to accept to be on anticoagulation first before proceeding with ablation. Jose Rodney MD HS/SSB /10:11 AM /11:24 AM
--- NOTE | 2017-04-07 16:49 | EKG ---
Date Performed: 04/05/2017 Time Performed: 22:50:32 PTAGE: 76 years EKG: Sinus bradycardia. Prolonged QT interval rSr'(V1) - probable normal variant Ant/septal and lateral T wave changes are nonspecific When compared to previous tracing, Bradycardia replaces Tachyc ardia. Diffuse ST-T wave changes, can not rule out ischemia. Clinical corrolation is suggested. Agustin fink ECG PREVIOUS TRACING : 04/05/2017 14.00.33 DOCTOR: Carlos Huerta Interpretating Date/Time 04/07/2017 16:47:11
== END 2017-04-06 15:03 | disposition home or self-care (01) | DRG 309 ==
LOC: NEPC 13:35 → NEDA 15:55 → HCIS 17:49
PROVIDERS: ADMIT Family Medicine; ATTEND Family Medicine
DX: I48.91 Unspecified atrial fibrillation (principal); E87.1 Hypo-osmolality and hyponatremia; M06.9 Rheumatoid arthritis, unspecified; I10 Essential (primary) hypertension; E03.9 Hypothyroidism, unspecified; Z85.41 Personal history of malignant neoplasm of cervix uteri; Z79.82 Long term (current) use of aspirin; Z87.891 Personal history of nicotine dependence
CPT/HCPCS: 71010; 80048; 82550; 82552; 83735; 84484; 85025; 85610; 85730; 93005; 96374; J1650; J2405; J7030

== ENCOUNTER 2017-12-01 20:53 | Inpatient (IN) ==
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
[2017-12-01 21:40] LABS: Baso % (Auto) 0.6 % (0.0-2.0); Eos # (Auto) 0.1 th/mm3 (0.0-0.4); Hematocrit 27.7 % (35.0-46.0); Hemoglobin 9.3 gm/dL (11.6-15.3); Lymph # (Auto) 1.3 th/mm3 (1.0-4.8); Lymph % (Auto) 24.9 % (9.0-44.0); Mean Corpuscular HGB Conc 33.6 % (32.0-36.0); Mean Corpuscular Hemoglobin 33.7 pg (27.0-34.0); Mean Corpuscular Volume 100.3 fL (80.0-100.0); Mean Platelet Volume 8.5 fL (7.0-11.0); Mono # (Auto) 0.8 th/mm3 (0.0-0.9); Mono % (Auto) 15.2 % (0.0-8.0); Neut # (Auto) 3.1 th/mm3 (1.8-7.7); Neut % (Auto) 58.3 % (16.0-70.0); Platelet Count 216 th/mm3 (150-450); Red Blood Count 2.76 mil/mm3 (4.00-5.30); Red Cell Distribution Width 15.4 % (11.6-17.2); White Blood Count 5.3 th/mm3 (4.0-11.0)
--- NOTE | 2017-12-01 21:41 | XR ---
EXAM DATE: 12/01/2017 9:33 PM EDT AGE/SEX: 77 years / Female INDICATIONS: Syncope. Patient found unresponsive. CLINICAL DATA: This is the patient's initial encounter. Patient reports that signs and symptoms have been present for 1 day and indicates a pain score of 0/10. MEDICAL/SURGICAL HISTORY: . A-fib. None. COMPARISON: POI, XR CHEST PA AND LAT, 10/01/2017. . FINDINGS: A single AP erect portable view of the chest was obtained. Study is more mid inspiratory. There is st reaky mild opacity at the lung bases most characteristic of atelectasis. There is no focal consolidat ion or effusion. The heart size remains mildly prominent with atherosclerotic changes again noted in the aorta. The bony thorax is intact. There are overlying electrocardiogram leads. CONCLUSION: 1. Apparent atelectasis at the lung bases. 2. Mild cardiomegaly. Electronically signed by: Otis Morgan MD 12/01/2017 9:40 PM EDT
[2017-12-01 21:42] LABS: Activated Partial Thrombo Time 22.8 sec (24.3-30.1); Prothrombin Time 10.4 sec (9.8-11.6)
[2017-12-01 21:59] LABS: Anion Gap 9 meq/L (5-15); Blood Urea Nitrogen 15 mg/dL (7-18); Calcium 7.5 mg/dL (8.5-10.1); Carbon Dioxide 22.8 meq/L (21.0-32.0); Chloride 98 meq/L (98-107); Glomerular Filtration Rate 38 mL/min (>89); Glucose,Random 89 mg/dL (74-106); Potassium 3.7 meq/L (3.5-5.1); Sodium 130 meq/L (136-145)
[2017-12-01] MEDS: Sod Chloride 0.9% Inj 1,000 ML IV.CONT SCH (23:29)
--- NOTE | 2017-12-01 23:58 | P.HPIM ---
History of Present Illness Primary Care Physician: Donavan Gonzalez MD History of Present Illness: Mrs. Rasheed is a 77-year-old female. She was on a couch with her earlier today and became unresponsive and syncopal. 911 was called and when paramedics arrived they found the patient was bradycardia with rate in the 30s. The patient's heart rate has has normalized and she is alert and oriented 3 when seen and feels at baseline. She has atrial fibrillation at baseline. In the past she has had problems with A. fib RVR. Ablation was performed approximately 4 years ago and she has had one additional ablation. 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 She denies any chest pain. She reports one prior syncopal episode about 2 years ago. Whether the syncopal episodes related to tachycardia or bradycardia the patient cannot recall. No other complaints tonight. - Diagnosis (1) Symptomatic bradycardia (2) Syncope Inpatient Certification: I certify that the inpatient services were ordered in accordance with Medicare regulations governing the order. This includes certification that hospital inpatient services are reasonable and necessary and in the case of services not specified as inpatient-only under 42 CFR 419.22(n), that they are appropriately provided as inpatient services in accordance to with the 2-midnight benchmark under 43 CFR 412.3(e) Estimated Total Length of Stay (Days): 3 Plans for Post Hospital Care: Home Review of Systems Constitutional: Denies fever(s), Denies malaise, Denies night sweats Eyes: Denies blind spots, Denies blurry vision, Denies change in vision, Denies double vision Ears, Nose, Mouth, and Throat: Denies abnormal hearing, Denies change in voice, Denies nose pain Cardiovascular: Reports slow heart rate, Denies chest pain, Denies chest pain at rest, Denies chest pain with activity Respiratory: Denies cough, Denies shortness of breath, Denies wheezing Gastrointestinal: Denies abdominal pain, Denies black, tarry stools, Denies bright, red blood in stools Musculoskeletal: Denies abnormal walking, Denies back pain, Denies body aches Skin/Breast: Denies rash, Denies skin pain, Denies skin ulcer Neurologic: Denies abnormal hearing, Denies abnormal movements, Denies abnormal speech Psychiatric: Denies abnormal sleep pattern, Denies anxiety, Denies behavioral changes PMF - History History Provided By: Certified Wellness Program Manager / EMT - Medical History Medical History: Medical History (Last Updated 12/01/17 @ 21:08 by Dmitry Monique) A-fib HTN (hypertension) Knee pain - Surgical History Surgical History: Surgical History (Last Updated 12/01/17 @ 21:08 by Dmitry Monique) H/O prior ablation treatment - Family History Family History: Family History (Last Updated 12/02/17 @ 00:29 by Kayden Cohen MD) Mother Atrial fibrillation Brother Atrial fibrillation - Tobacco History Smoking Status: Former smoker Tobacco Type: Cigarettes - Alcohol History How Often Do You Have a Drink Containing Alcohol: 2 to 4 times a month - Substance Use History Substance History: No History of Abuse - Travel History Recent Travel in the [place] Within the Last 8 Weeks: No Recent Travel Out of the Country Within the Last 8 Weeks: No - Immunization History Tetanus Immunization: >5 Years Hx Influenza Vaccine This Season: Yes Medications and Allergies Active Medications: Active Medications Amiodarone HCl (Cordarone) 200 mg PO DAILY [facility] Hydrochlorothiazide (Hydrodiuril) 25 mg PO DAILY [facility] Sodium Chloride (Ns Inj) 1,000 mls @ 75 mls/hr IV.CONT .[id number] [facility] Last Admin: 12/01/17 23:29 Dose: 75 mls/hr Levothyroxine Sodium (Synthroid) 50 mcg PO DAILY@0600 [facility] Ondansetron HCl (Zofran Inj) 4 mg IV.PUSH Q6H PRN PRN Reason: NAUSEA OR VOMITING Pt:Xeljanz Xr 11 Mg 0 each PO DAILY [facility] Sodium Chloride (Ns Flush) 2 ml IV.FLUSH UNSCH PRN PRN Reason: FLUSH AFTER USING IV ACCESS Valsartan (Diovan) 80 mg PO DAILY [facility] Allergies Allergy/AdvReac Type Severity Reaction Status Date / Time codeine Allergy Severe NAUSEA Verified 12/01/17 20:58 ibuprofen Allergy Severe Anaphylaxis Verified 12/01/17 20:58 penicillin G Allergy Severe HIVES Verified 12/01/17 20:58 valacyclovir [From Valtrex] Allergy Atrial Verified 12/01/17 22:01 Fibrillation amlodipine [From Norvasc] AdvReac Swelling Verified 12/01/17 22:01 lisinopril AdvReac Cough Verified 12/01/17 22:01 tamsulosin AdvReac Swelling Verified 12/01/17 22:01 Home Medications Medication Instructions Recorded Confirmed Type amiodarone 200 mg PO DAILY 12/01/17 12/01/17 History aspirin 325 mg PO DAILY 12/01/17 12/01/17 History biotin 10,000 mcg PO DAILY 12/01/17 12/01/17 History cholecalciferol (vitamin D3) 2,000 unit PO DAILY 12/01/17 12/01/17 History [Vitamin D3] diphenhydramine HCl [Benadryl 25 mg PO DAILY PRN 12/01/17 12/01/17 History Allergy] hydrochlorothiazide 25 mg PO DAILY 12/01/17 12/01/17 History levothyroxine 50 mcg PO DAILY 12/01/17 12/01/17 History tofacitinib [Xeljanz XR] 11 mg PO DAILY 12/01/17 12/01/17 History valsartan 80 mg PO DAILY 12/01/17 12/01/17 History Exam Vital signs: Vital Signs 12/01/17 20:58 12/01/17 21:50 12/01/17 22:03 Temperature 97.4 F L Pulse Rate 56 L 58 L 58 L Respiratory Rate 20 20 Blood Pressure 168/77 H 158/67 H 151/70 H Pulse Oximetry 95 95 97 12/01/17 22:30 12/01/17 23:30 Temperature Pulse Rate 68 Respiratory Rate 19 Blood Pressure 167/73 H Pulse Oximetry 97 95 Intake & Output 12/01/17 12/01/17 12/02/17 06:59 18:59 06:59 Weight 58.967 kg Narrative: GENERAL: NAD, A&Ox3 HEAD: Normocephalic. NECK: Supple, trachea midline. No lymphadenopathy. EYES: No scleral icterus. No injection or drainage. CARDIOVASCULAR: Mildly bradycardic rate and rhythm without murmurs, gallops, or rubs. RESPIRATORY: Breath sounds equal bilaterally. No accessory muscle use. GASTROINTESTINAL: Abdomen soft, non-tender, nondistended. MUSCULOSKELETAL: No cyanosis, or edema. SKIN: Warm and dry. NEURO: No focal neurological deficits. Results - Labs CBC & Chem 7: 12/01/17 21:05 12/01/17 21:05 Labs: Short CBC 12/01/17 Range/Units 21:05 WBC 5.3 (4.0-11.0) th/mm3 Hgb 9.3 L (11.6-15.3) gm/dL Hct 27.7 L (35.0-46.0) % Plt Count 216 (150-450) th/mm3 BMP 12/01/17 21:05 Sodium 130 L Potassium 3.7 Chloride 98 Carbon Dioxide 22.8 BUN 15 Creatinine 1.37 H Calcium 7.5 L Cardiac Enzymes 12/01/17 Range/Units 21:05 Troponin I Less than 0.02 L (0.02-0.05) ng/mL - Imaging Impressions Chest X-Ray 12/01/17 21:15 CONCLUSION: 1. Apparent atelectasis at the lung bases. 2. Mild cardiomegaly. Caprini VTE Risk Assessment Caprini VTE Risk Assessment: Moderate/High Risk (score >= 2) Caprini Risk Assessment Model: Point Value = 1 Point Value = 2 Point Value = 3 Point Value = 5 Age 41-60 Minor surgery BMI > 25 kg/m2 Swollen legs Varicose veins or History of unexplained or recurrent spontaneous Oral contraceptives or hormone replacement Sepsis (< 1 month) Serious lung disease, including pneumonia (< 1 month) Abnormal pulmonary function Acute myocardial infarction Congestive heart failure (< 1 month) History of inflammatory bowel disease Medical patient at bed rest Age 61-74 Arthroscopic surgery Major open surgery (> 45 min) Laparoscopic surgery (> 45 min) Malignancy Confined to bed (> 72 hours) Immobilizing plaster cast Central venous access Age >= 75 History of VTE Family history of VTE Factor V Leiden Prothrombin [id number] Lupus anticoagulant Anticardiolipin antibodies Elevated serum homocysteine Heparin-induced thrombocytopenia Other congenital or acquired thrombophilia Stroke (< 1 month) Elective arthroplasty Hip, pelvis, or leg fracture Acute spinal cord injury (< 1 month) Prophylaxis Regimen: Total Risk Factor Score Risk Level Prophylaxis Regimen 0-1 Low Early ambulation 2 Moderate Order ONE of the following: *Sequential Compression Device (SCD) *Heparin 5000 units SQ BID 3-4 Higher Order ONE of the following medications: *Heparin 5000 units SQ TID *Enoxaparin/Lovenox 40 mg SQ daily (WT < 150 kg, CrCl > 30 mL/min) *Enoxaparin/Lovenox 30 mg SQ daily (WT < 150 kg, CrCl > 10-29 mL/min) *Enoxaparin/Lovenox 30 mg SQ BID (WT < 150 kg, CrCl > 30 mL/min) AND/OR *Sequential Compression Device (SCD) 5 or more Highest Order ONE of the following medications: *Heparin 5000 units SQ TID (Preferred with Epidurals) *Enoxaparin/Lovenox 40 mg SQ daily (WT < 150 kg, CrCl > 30 mL/min) *Enoxaparin/Lovenox 30 mg SQ daily (WT < 150 kg, CrCl > 10-29 mL/min) *Enoxaparin/Lovenox 30 mg SQ BID (WT < 150 kg, CrCl > 30 mL/min) AND *Sequential Compression Device (SCD) Assessment and Plan - Assessment (1) Symptomatic bradycardia Code(s): R00.1 - Bradycardia, unspecified Status: Acute (2) Syncope Code(s): R55 - Syncope and collapse Status: Acute - Plan 77-year-old female admitted secondary to symptomatic bradycardia with syncope Symptomatic bradycardia Syncope Hx of Ablation (2012,2013) Heart rate reported to be in the 30s by EMS Follow on telemetry Consult cardiology Monitor for recurrence of bradycardia Caution with ambulation for now Hypertension Continue baseline treatment Follow blood pressures Adjust treatments as needed Hypothyroidism Rheumatoid arthritis Continue baseline treatments DVT prophylaxis Heparin
[2017-12-02 00:22] LABS: Bilirubin,Urine Negative (Negative); Clarity,Urine Clear (Clear); Color,Urine Straw (Yellw/Straw); Glucose,Urine (UA) Negative (Negative); Hyaline Casts,Urine 1 /lpf (0-3); Leukocyte Esterase,Urine Trace (Negative); Mucus,Urine Few /lpf (Occasional); Nitrite,Urine Negative (Negative); Specific Gravity,Urine 1.005 (1.002-1.035); Squamous Epithelial Cell,Urine 3 /hpf (0-5)
[2017-12-02] MEDS ORDERED: Levothyroxine 50 MCG Tablet PO SCH (06:00)
--- NOTE | 2017-12-02 08:47 | ECG ---
Date Performed: 12/01/2017 Time Performed: 21:03:37 PTAGE: 77 years EKG: SINUS BRADYCARDIA INCOMPLETE RIGHT BUNDLE BRANCH BLOCK NONSPECIFIC ST & T-WAVE ABNORMALITY ABNORMAL ECG PREVIOUS TRACING : 04/05/2017 22.50 No significant change from previous tracing noted. DOCTOR: Shin Bustos Interpretating Date/Time 12/02/2017 08:46:49
[2017-12-02] MEDS ORDERED: LEVOTHYROXINE 50 MCG PO SCH (09:00)
[2017-12-02] MEDS ORDERED: TOFACITINIB 11 MG PO SCH ×2 (09:00)
[2017-12-02] MEDS: Amiodarone 200 MG Tablet PO SCH (09:52)
[2017-12-02] MEDS: hydroCHLOROthiazide 25 MG Tablet PO SCH (09:53)
[2017-12-02] MEDS: Heparin - SQ 10,000 UNITS/ML Vial SQ SCH ×2 (09:53→20:43)
[2017-12-02 10:55] LABS: Baso % (Auto) 0.6 % (0.0-2.0); Eos % (Auto) 0.7 % (0.0-4.0); Hematocrit 29.8 % (35.0-46.0); Hemoglobin 10.1 gm/dL (11.6-15.3); Lymph # (Auto) 0.6 th/mm3 (1.0-4.8); Lymph % (Auto) 11.1 % (9.0-44.0); Mean Corpuscular HGB Conc 33.9 % (32.0-36.0); Mean Corpuscular Hemoglobin 33.7 pg (27.0-34.0); Mean Corpuscular Volume 99.5 fL (80.0-100.0); Mean Platelet Volume 8.5 fL (7.0-11.0); Mono # (Auto) 0.6 th/mm3 (0.0-0.9); Mono % (Auto) 11.4 % (0.0-8.0); Neut % (Auto) 76.2 % (16.0-70.0); Platelet Count 236 th/mm3 (150-450); Red Blood Count 2.99 mil/mm3 (4.00-5.30); Red Cell Distribution Width 15.5 % (11.6-17.2); White Blood Count 5.2 th/mm3 (4.0-11.0)
[2017-12-02 11:16] LABS: Alanine Aminotransferase 38 U/L (10-53); Albumin 3.7 g/dL (3.4-5.0); Anion Gap 10 meq/L (5-15); Aspartate Aminotransferase 51 U/L (15-37); Blood Urea Nitrogen 10 mg/dL (7-18); Calcium 7.8 mg/dL (8.5-10.1); Carbon Dioxide 24.2 meq/L (21.0-32.0); Chloride 100 meq/L (98-107); Glomerular Filtration Rate 49 mL/min (>89); Glucose,Random 91 mg/dL (74-106); Potassium 3.7 meq/L (3.5-5.1); Sodium 134 meq/L (136-145)
[2017-12-02 11:19] LABS: Alkaline Phosphatase 56 U/L (45-117); Total Protein 6.8 g/dL (6.4-8.2)
[2017-12-02] MEDS: Sod Chloride 0.9% Inj 1,000 ML IV.CONT SCH (13:00)
--- NOTE | 2017-12-02 16:24 | P.PN ---
Subjective Interval history: Patient is seen lying in bed. She tells me that she has not had any repeat episodes of syncope or dizziness. Reports no palpitations or chest pain. She does endorse being very cold and unable to warm up. Tells me that in the past she was on Xarelto however stopped due to easy bruising tells me that she is now only taking aspirin. Denies any nausea vomiting or diarrhea. Physical Exam Vital signs: Vital Signs 12/01/17 20:58 12/01/17 21:50 12/01/17 22:03 Temperature 97.4 F L Pulse Rate 56 L 58 L 58 L Respiratory Rate 20 20 Blood Pressure 168/77 H 158/67 H 151/70 H Pulse Oximetry 95 95 97 12/01/17 22:30 12/01/17 23:30 12/02/17 00:44 Temperature 98 F Pulse Rate 68 56 L Respiratory Rate 19 20 Blood Pressure 167/73 H 174/73 H Pulse Oximetry 97 95 97 12/02/17 00:45 12/02/17 02:19 12/02/17 04:31 Temperature 98 F 98 F Pulse Rate 57 L 57 L 60 Respiratory Rate 20 18 Blood Pressure 137/63 Pulse Oximetry 97 96 12/02/17 07:46 12/02/17 07:52 12/02/17 08:04 Temperature 98.6 F Pulse Rate 55 L 54 L Respiratory Rate 14 Blood Pressure 165/72 H Pulse Oximetry 97 100 12/02/17 12:00 12/02/17 15:38 Temperature 97.5 F L 97.8 F Pulse Rate 57 L 60 Respiratory Rate 18 16 Blood Pressure 177/69 H 171/67 H Pulse Oximetry 91 L 93 L Intake & Output 12/01/17 12/02/17 12/02/17 18:59 06:59 18:59 Intake Total 1000 / 1000 Balance 1000 / 1000 Weight 58.967 kg Intake: IV 1000 / 1000 NS Inj 1,000 ML @ 75 mls/hr IV. 1000 / 1000 CONT .[id number] [facility] Rx#:[id number] Other: # Voids 1 Date of Last Bowel Movement 12/01/17 11/30/17 Narrative: GENERAL: Well-nourished, well-developed adult female in no obvious distress. SKIN: Warm and dry. Area of ecchymosis noted on upper right chest wall and on forearms bilaterally. HEAD: Atraumatic. Normocephalic. CARDIOVASCULAR: Irregular rate and rhythm. RESPIRATORY: No accessory muscle use. Clear to auscultation. Breath sounds equal bilaterally. GASTROINTESTINAL: Abdomen soft, non-tender, non-distended. Positive bowel sounds. MUSCULOSKELETAL: Extremities without clubbing, cyanosis, or edema. No obvious deformities. NEUROLOGICAL: Awake and alert. No obvious cranial nerve deficits. Motor grossly within normal limits. Normal speech. PSYCHIATRIC: Appropriate mood and affect; insight and judgment good. Results - Labs CBC & Chem 7: 12/02/17 10:44 12/02/17 10:44 Laboratory Results - last 24 hr 12/01/17 12/01/17 12/01/17 21:05 21:05 21:05 WBC 5.3 RBC 2.76 L Hgb 9.3 L Hct 27.7 L MCV 100.3 H MCH 33.7 MCHC 33.6 RDW 15.4 Plt Count 216 MPV 8.5 Neut % (Auto) 58.3 Lymph % (Auto) 24.9 Cobb % (Auto) 15.2 H Eos % (Auto) 1.0 Baso % (Auto) 0.6 Neut # (Auto) 3.1 Lymph # (Auto) 1.3 Cobb # (Auto) 0.8 Eos # (Auto) 0.1 Baso # (Auto) 0.0 WBC Differential . Differential Comment Auto diff final PT 10.4 INR 1.0 APTT 22.8 L Sodium 130 L Potassium 3.7 Chloride 98 Carbon Dioxide 22.8 Anion Gap 9 BUN 15 Creatinine 1.37 H Estimated GFR 38 L Random Glucose 89 Calcium 7.5 L Total Bilirubin AST ALT Alkaline Phosphatase Troponin I Less than 0.02 L Total Protein Albumin TSH 22.100 H Free T4 Total T3 Urine Color Urine Clarity Urine pH Ur Specific [place] Urine Protein Urine Glucose (UA) Urine Ketones Urine Occult Blood Urine Nitrate Urine Bilirubin Urine Urobilinogen Ur Leukocyte Esterase Urine RBC Urine WBC Ur Squamous Epith Cells Hyaline Casts Urine Mucus Digoxin Less than 0.1 L 12/01/17 12/01/17 12/02/17 21:05 23:00 10:44 WBC 5.2 RBC 2.99 L Hgb 10.1 L Hct 29.8 L MCV 99.5 MCH 33.7 MCHC 33.9 RDW 15.5 Plt Count 236 MPV 8.5 Neut % (Auto) 76.2 H Lymph % (Auto) 11.1 Cobb % (Auto) 11.4 H Eos % (Auto) 0.7 Baso % (Auto) 0.6 Neut # (Auto) 4.0 Lymph # (Auto) 0.6 L Cobb # (Auto) 0.6 Eos # (Auto) 0.0 Baso # (Auto) 0.0 WBC Differential . Differential Comment Auto diff final PT INR APTT Sodium Potassium Chloride Carbon Dioxide Anion Gap BUN Creatinine Estimated GFR Random Glucose Calcium Total Bilirubin AST ALT Alkaline Phosphatase Troponin I Total Protein Albumin TSH Free T4 Total T3 Urine Color Straw Urine Clarity Clear Urine pH 5.0 Ur Specific [place] 1.005 Urine Protein Negative Urine Glucose (UA) Negative Urine Ketones Negative Urine Occult Blood Negative Urine Nitrate Negative Urine Bilirubin Negative Urine Urobilinogen Less than 2 Ur Leukocyte Esterase Trace H Urine RBC 1 Urine WBC 20 H Ur Squamous Epith Cells 3 Hyaline Casts 1 Urine Mucus Few H Digoxin Cancelled 12/02/17 12/02/17 12/02/17 10:44 10:44 10:44 WBC RBC Hgb Hct MCV MCH MCHC RDW Plt Count MPV Neut % (Auto) Lymph % (Auto) Cobb % (Auto) Eos % (Auto) Baso % (Auto) Neut # (Auto) Lymph # (Auto) Cobb # (Auto) Eos # (Auto) Baso # (Auto) WBC Differential Differential Comment PT INR APTT Sodium 134 L Potassium 3.7 Chloride 100 Carbon Dioxide 24.2 Anion Gap 10 BUN 10 Creatinine 1.08 H Estimated GFR 49 L Random Glucose 91 Calcium 7.8 L Total Bilirubin 0.5 AST 51 H ALT 38 Alkaline Phosphatase 56 Troponin I Less than 0.02 L Total Protein 6.8 Albumin 3.7 TSH Free T4 1.37 Total T3 54 L Urine Color Urine Clarity Urine pH Ur Specific [place] Urine Protein Urine Glucose (UA) Urine Ketones Urine Occult Blood Urine Nitrate Urine Bilirubin Urine Urobilinogen Ur Leukocyte Esterase Urine RBC Urine WBC Ur Squamous Epith Cells Hyaline Casts Urine Mucus Digoxin - Imaging Impressions Chest X-Ray 12/01/17 21:15 CONCLUSION: 1. Apparent atelectasis at the lung bases. 2. Mild cardiomegaly. Assessment and Plan - Assessment (1) Symptomatic bradycardia Code(s): R00.1 - Bradycardia, unspecified Status: Acute (2) Syncope Code(s): R55 - Syncope and collapse Status: Acute - Plan Patient is a 77-year-old female admitted for syncopal episode and bradycardia. She has a history of A. fib that has failed ablation. Currently on amiodarone. Recently changed blood pressure medication from lisinopril to valsartan due to cough on lisinopril. Has been on valsartan for several months with no adverse reaction. Past medical history also includes hypertension, rheumatoid arthritis, chronic kidney disease and hypothyroidism. Symptomatic bradycardia Syncope Hx of Ablation (2012,2013) -Heart rate reported to be in the 30s by EMS; EKG sinus rhythm. No repeat bradycardia -Follow on telemetry -Consult cardiology; appreciate assistance -Monitor for recurrence of bradycardia -Caution with ambulation for now -On ASA at home for anticoagulation Chronic kidney disease -Baseline thought to be GFR 40s-50s. Baseline creatinine appears to be +/-1.1 -Avoid nephrotoxins, monitor kidney function Hyponatremia -Acute - 130 at admit Hypertension -Continue baseline treatment -Follow blood pressures -Adjust treatments as needed Hypothyroidism -TSH 22+ on admit -Currently taking levothyroxine 50 mcg daily; also on amiodarone. T4 normal. T3 mildly low. Will increase levothyroxine to 50 mcg daily. Rheumatoid arthritis -Continue baseline treatments DVT prophylaxis Heparin
--- NOTE | 2017-12-03 00:08 | MB ---
cc: Morgan Scott DO DATE: 12/02/2017 REASON FOR CONSULTATION: Syncope. HISTORY OF PRESENT ILLNESS: Jadyn Rasheed is a pleasant 77-year-old female who sees my partner, Dr. Us, in the office, who presented to [facility] Emergency Room due to a syncopal episode. The patient was sitting on the couch with her earlier today and suddenly became unresponsive. 911 was called, and when paramedics arrived, the patient was bradycardic with heart rates in the upper 30s and hypotensive. Heart rate normalized, and she became alert and oriented x3. She states that she had no aura or symptoms before the episode. She felt like she was mildly dehydrated as she had not drank enough water but was sitting at that time when the episode happened. Telemetry has been reviewed, and she has some mild bradycardia in the upper 50s but no significant AV block or bradycardia noted. She denies any current chest pain, shortness of breath, or palpitations. PAST MEDICAL HISTORY: 1. Atrial fibrillation with a history of cardioversion and ablation in the past. 2. Hypertension. 3. Hypothyroidism. 4. Cervical cancer (1971). 5. Rheumatoid arthritis. PAST SURGICAL HISTORY: Atrial fibrillation ablation (08/2012, 05/2013, 04/2015). ALLERGIES: 1. CODEINE. 2. IBUPROFEN. 3. PENICILLIN. 4. VALACYCLOVIR. 5. NORVASC. 6. LISINOPRIL. 7. TAMSULOSIN. MEDICATIONS: 1. Valsartan 80 mg daily. 2. Aspirin 325 mg daily. 3. Hydrochlorothiazide 25 mg daily. 4. Amiodarone 200 mg daily. 5. Biotin 10,000 mcg daily. 6. Xeljanz XR 11 mg daily. 7. Synthroid 50 mcg daily. FAMILY HISTORY: She denies premature coronary artery disease or sudden cardiac within the family. SOCIAL HISTORY: She denies current tobacco, alcohol, or drug abuse. She does have a history of smoking. REVIEW OF SYSTEMS: Fourteen systems were reviewed including osteopathic. Pertinent positives and negatives above, otherwise negative. PHYSICAL EXAMINATION: VITAL SIGNS: Temperature 97.8, heart rate 60, blood pressure 170/67, respirations 16, pulse oximetry 93% on 2 L. GENERAL: The patient appears well, in no acute distress, alert, awake and oriented x3. HEENT: Extraocular muscles intact. Mucous membranes moist. NECK: Supple. No JVD at 45 degrees. No carotid bruits heard bilaterally. Carotid upstroke is brisk in nature. HEART: Regular rate and rhythm. Positive first and second heart sounds. LUNGS: Clear to auscultation bilaterally. No wheezes or rales. ABDOMEN: Soft, nontender, nondistended. No organomegaly noted. EXTREMITIES: No clubbing, cyanosis, or edema. Femoral and distal pulses are intact bilaterally. NEUROLOGIC: No focal deficits. SKIN: Warm, dry, and intact. OSTEOPATHIC: No kyphoscoliosis, lordosis, or paraspinal tender points. LABORATORY DATA: Hemoglobin 10.1, hematocrit 29.8, platelets 236. Potassium 3.7, BUN 10, creatinine 1.08. Troponin negative x2. Electrocardiogram (12/01/2017 at 2103): Sinus bradycardia, incomplete right bundle branch block, nonspecific ST-T wave changes. IMPRESSION: 1. Syncopal episode of unknown cause. 1. Bradycardia. 2. History of atrial fibrillation with multiple cardioversions and ablations. 3. Hypertension. 4. Hypothyroidism. 5. Rheumatoid arthritis. RECOMMENDATIONS: 1. Ms. Rasheed had a syncopal episode while sitting with no chest pain, shortness of breath, or palpitations. 2. This is an unknown cause for this, and so due to that a loop recorder will be placed. I discussed this with Dr. Us who is in agreement. Risks, benefits, and alternatives have been discussed with the patient, and she consents. 3. We will keep her n.p.o. after midnight and plan for the procedure tomorrow. 4. She will continue on her current medications for her other cardiac problems. 5. She currently is on aspirin for anticoagulation for atrial fibrillation as she has had multiple episodes of bleeding. Thank you for allowing me to see Jadyn Rasheed. If there are any questions, please do not hesitate to call. DO JT Hernandez/paulie , 11:10 PM , 11:22 PM
[2017-12-03] MEDS: Sod Chloride 0.9% Inj 1,000 ML IV.CONT SCH (02:36)
[2017-12-03] MEDS ORDERED: Levothyroxine 100 MCG Tablet PO SCH (06:00)
[2017-12-03] MEDS ORDERED: fentaNYL Citrate Inj 100 MCG/2 ML Ampul ONE (08:23)
[2017-12-03] MEDS ORDERED: Midazolam Inj 5 MG/ML 1 ML Vial ONE (08:23)
[2017-12-03] MEDS ORDERED: Sod Chloride 0.9% Inj 1,000 ML IV.SIG SCH (08:30)
[2017-12-03] MEDS ORDERED: Vancomycin Inj 1,000 MG in Sodium Chlor 0.9% Inj 250 ML IV.SIG SCH (08:35)
[2017-12-03] MEDS ORDERED: Chlorhexidine Gluconate 2% 1 Pack (2 Cloths) TOPICAL SCH (08:45)
[2017-12-03] MEDS ORDERED: Mupirocin 2% Nasal Oint Topical Syringe EACH NARE SCH (08:45)
[2017-12-03 11:25] VITALS: BP 150/60; PULSE 53; RESP 16; TEMP 98.6; O2SAT 93
[2017-12-03] MEDS: Amiodarone 200 MG Tablet PO SCH (11:47)
[2017-12-03] MEDS: Heparin - SQ 10,000 UNITS/ML Vial SQ SCH ×2 (11:48→12:30)
[2017-12-03] MEDS: hydroCHLOROthiazide 25 MG Tablet PO SCH (11:48)
[2017-12-03] MEDS ORDERED: Amiodarone 200 MG Tablet PO SCH (12:15)
--- NOTE | 2017-12-03 12:43 | P.PN ---
Subjective Interval history: She has seen in room lying in bed quietly. is also at bedside. She has returned from having loop recorder placed; reports that she feels well. No dizziness or syncope. No chest pain or shortness of breath. No palpitations. No nausea vomiting or diarrhea. She very much would like to go home. Physical Exam Vital signs: Vital Signs 12/02/17 15:38 12/02/17 18:41 12/02/17 20:00 Temperature 97.8 F 98.5 F Pulse Rate 60 57 L 62 Respiratory Rate 16 14 Blood Pressure 171/67 H 158/70 H Pulse Oximetry 93 L 95 12/02/17 23:42 12/03/17 03:43 12/03/17 11:23 Temperature 99.3 F 99.3 F 98.6 F Pulse Rate 61 55 L 53 L Respiratory Rate 18 18 16 Blood Pressure 155/70 H 143/58 H 150/60 H Pulse Oximetry 90 L 96 93 L Intake & Output 12/02/17 12/03/17 12/03/17 18:59 06:59 18:59 Intake Total 1000 / 1000 1000 / 1000 Balance 1000 / 1000 1000 / 1000 Intake: IV 1000 / 1000 1000 / 1000 NS Inj 1,000 ML @ 75 mls/hr IV. 1000 / 1000 1000 / 1000 CONT .[id number] [facility] Rx#:[id number] Other: Date of Last Bowel Movement 11/30/17 12/02/17 # Bowel Movements 1 Narrative: GENERAL: Well-nourished, well-developed adult female in no obvious distress. SKIN: Warm and dry. Area of ecchymosis noted on upper right chest wall and on forearms bilaterally. HEAD: Atraumatic. Normocephalic. CARDIOVASCULAR: Irregular rate and rhythm. RESPIRATORY: No accessory muscle use. Clear to auscultation. Breath sounds equal bilaterally. GASTROINTESTINAL: Abdomen soft, non-tender, non-distended. Positive bowel sounds. MUSCULOSKELETAL: Extremities without clubbing, cyanosis, or edema. No obvious deformities. NEUROLOGICAL: Awake and alert. No obvious cranial nerve deficits. Motor grossly within normal limits. Normal speech. PSYCHIATRIC: Appropriate mood and affect; insight and judgment good. Results - Labs CBC & Chem 7: 12/02/17 10:44 12/02/17 10:44 Assessment and Plan - Assessment (1) Symptomatic bradycardia Code(s): R00.1 - Bradycardia, unspecified Status: Acute (2) Syncope Code(s): R55 - Syncope and collapse Status: Acute - Plan Patient is a 77-year-old female admitted for syncopal episode and bradycardia. She has a history of A. fib that has failed ablation. Currently on amiodarone. Recently changed blood pressure medication from lisinopril to valsartan due to cough on lisinopril. Has been on valsartan for several months with no adverse reaction. Past medical history also includes hypertension, rheumatoid arthritis, chronic kidney disease and hypothyroidism. Symptomatic bradycardia Syncope Hx of Ablation (2012,2013) -Heart rate reported to be in the 30s by EMS; EKG sinus rhythm. No repeat bradycardia -Follow on telemetry -Consult cardiology; appreciate assistance -cardiology placed a loop recorder and reduce amiodarone to 100 mg daily. Recommend follow-up outpatient. -Monitor for recurrence of bradycardia -Caution with ambulation for now -On ASA at home for anticoagulation Chronic kidney disease -Baseline thought to be GFR 40s-50s. Baseline creatinine appears to be +/-1.1 -Avoid nephrotoxins, monitor kidney function Hyponatremia -Acute - 130 at admit Hypertension -Continue baseline treatment -Follow blood pressures -Adjust treatments as needed Hypothyroidism -TSH 22+ on admit -Currently taking levothyroxine 50 mcg daily; also on amiodarone. T4 normal. T3 mildly low. Will increase levothyroxine to 100 mcg daily. Patient will follow up with primary/cardiac for monitoring in 4-6 weeks. Rheumatoid arthritis -Continue baseline treatments DVT prophylaxis Heparin
--- NOTE | 2017-12-03 12:55 | P.DS ---
Date of admission: 12/01/17 23:02 Primary care physician: Donavan Gonzalez MD Attending physician on discharge: Yovany Swanson Anticipated date of discharge: 12/03/17 Brief History from admission: Mrs. Rasheed is a 77-year-old female. She was on a couch with her earlier today and became unresponsive and syncopal. 911 was called and when paramedics arrived they found the patient was bradycardia with rate in the 30s. The patient's heart rate has has normalized and she is alert and oriented 3 when seen and feels at baseline. She has atrial fibrillation at baseline. In the past she has had problems with A. fib RVR. Ablation was performed approximately 4 years ago and she has had one additional ablation. As an outpatient she follows with Dr. Us as her change person. She denies any chest pain. She reports one prior syncopal episode about 2 years ago. Whether the syncopal episodes related to tachycardia or bradycardia the patient cannot recall. No other complaints tonight. DS: Diagnosis - Discharge Diagnosis (1) Symptomatic bradycardia Status: Resolved (2) Syncope Status: Resolved (3) Hypothyroid Status: Chronic DS: Medications - Discharge Medications Prescriptions: amiodarone 100 mg PO DAILY #30 tab levothyroxine [Synthroid] 100 mcg PO DAILY@0600 #30 tab DS: Summary Hospital Course: Patient is a 77-year-old female admitted for syncopal episode and bradycardia. She has a history of A. fib that has failed ablation x3. Currently on amiodarone. Recently changed blood pressure medication from lisinopril to valsartan due to cough on lisinopril. Has been on valsartan for several months with no adverse reaction. Past medical history also includes hypertension, rheumatoid arthritis, chronic kidney disease and hypothyroidism. No repeat bradycardia while hospitalized. Cardiology placed a loop recorder and reduced amiodarone to 100 mg daily. Continue ASA as anticoagulation. Cardio reports recent echo in office with EF +60. Patient has a history of hypothyroidism which has been well controlled on 50 mcg daily. TSH was 22+ on admit; T3 mildly low and T4 normal-increased levothyroxine to 100 mcg daily. - Time Spent with Patient Total time spent providing and/or coordinating discharge services: Less than 30 minutes - Quality: VTE Deep Vein Thrombosis/Pulmonary Embolism Present on Admission: No Exam Vital signs: Vital Signs 12/02/17 15:38 12/02/17 18:41 12/02/17 20:00 Temperature 97.8 F 98.5 F Pulse Rate 60 57 L 62 Respiratory Rate 16 14 Blood Pressure 171/67 H 158/70 H Pulse Oximetry 93 L 95 12/02/17 23:42 12/03/17 03:43 12/03/17 11:23 Temperature 99.3 F 99.3 F 98.6 F Pulse Rate 61 55 L 53 L Respiratory Rate 18 18 16 Blood Pressure 155/70 H 143/58 H 150/60 H Pulse Oximetry 90 L 96 93 L Intake & Output 12/02/17 12/03/17 12/03/17 18:59 06:59 18:59 Intake Total 1000 / 1000 1000 / 1000 Balance 1000 / 1000 1000 / 1000 Intake: IV 1000 / 1000 1000 / 1000 NS Inj 1,000 ML @ 75 mls/hr IV. 1000 / 1000 1000 / 1000 CONT .[id number] [facility] Rx#:[id number] Other: Date of Last Bowel Movement 11/30/17 12/02/17 # Bowel Movements 1 Narrative: GENERAL: Well-nourished, well-developed adult female in no obvious distress. SKIN: Warm and dry. Area of ecchymosis noted on upper right chest wall and on forearms bilaterally. HEAD: Atraumatic. Normocephalic. CARDIOVASCULAR: regular rate and rhythm. RESPIRATORY: No accessory muscle use. Clear to auscultation. Breath sounds equal bilaterally. GASTROINTESTINAL: Abdomen soft, non-tender, non-distended. Positive bowel sounds. MUSCULOSKELETAL: Extremities without clubbing, cyanosis, or edema. No obvious deformities. NEUROLOGICAL: Awake and alert. No obvious cranial nerve deficits. Motor grossly within normal limits. Normal speech. PSYCHIATRIC: Appropriate mood and affect; insight and judgment good. Results Procedures completed during hospitalization: loop recorder placed - Impressions ITS Impressions Chest X-Ray 12/01/17 21:15 CONCLUSION: 1. Apparent atelectasis at the lung bases. 2. Mild cardiomegaly. Discharge Plan - Discharge Disposition Patient Disposition: Discharge Home - Discharge Condition Condition: Stable - Discharge Order Discharge Orders: Discharge Order (Routine); Ordered 12/03/17 Ordered By: Cora Clifton - Physicians Team Primary Care Provider: Donavan Gonzalez Attending Provider: Yovany Swanson Other Providers: Dwight Us MD
--- NOTE | 2017-12-03 15:16 | P.PNCA ---
Subjective Interval history: Loop recorder placed Doing well, no complaints Physical Exam Vital signs: Vital Signs 12/02/17 15:38 12/02/17 18:41 12/02/17 20:00 Temperature 97.8 F 98.5 F Pulse Rate 60 57 L 62 Respiratory Rate 16 14 Blood Pressure 171/67 H 158/70 H Pulse Oximetry 93 L 95 12/02/17 23:42 12/03/17 03:43 12/03/17 09:00 Temperature 99.3 F 99.3 F Pulse Rate 61 55 L 52 L Respiratory Rate 18 18 Blood Pressure 155/70 H 143/58 H Pulse Oximetry 90 L 96 12/03/17 11:23 Temperature 98.6 F Pulse Rate 53 L Respiratory Rate 16 Blood Pressure 150/60 H Pulse Oximetry 93 L Intake & Output 12/02/17 12/03/17 12/03/17 18:59 06:59 18:59 Intake Total 1000 / 1000 1000 / 1000 Balance 1000 / 1000 1000 / 1000 Intake: IV 1000 / 1000 1000 / 1000 NS Inj 1,000 ML @ 75 mls/hr IV. 1000 / 1000 1000 / 1000 CONT .[id number] [facility] Rx#:[id number] Other: Date of Last Bowel Movement 11/30/17 12/02/17 12/02/17 # Bowel Movements 1 Narrative: GENERAL: Well-nourished, well-developed adult female in no obvious distress. SKIN: Warm and dry. Area of ecchymosis noted on upper right chest wall and on forearms bilaterally. HEAD: Atraumatic. Normocephalic. CARDIOVASCULAR: Mild bradycardia RESPIRATORY: No accessory muscle use. Clear to auscultation. Breath sounds equal bilaterally. GASTROINTESTINAL: Abdomen soft, non-tender, non-distended. Positive bowel sounds. MUSCULOSKELETAL: Extremities without clubbing, cyanosis, or edema. No obvious deformities. NEUROLOGICAL: Awake and alert. No obvious cranial nerve deficits. Motor grossly within normal limits. Normal speech. PSYCHIATRIC: Appropriate mood and affect; insight and judgment good. Assessment and Plan - Assessment (1) Afib Code(s): I48.91 - Unspecified atrial fibrillation Status: Acute (2) Syncope Code(s): R55 - Syncope and collapse Status: Resolved (3) Hypothyroid Code(s): E03.9 - Hypothyroidism, unspecified Status: Chronic - Plan 1) Syncope Unknown cause Loop recorder placed 2) Afib Previous bleed on anticoagulation ASA Mild bradycardia, will decrease Amiodarone to 100mg daily 3) Recent echo in the office with normal function and no valvulopathies 4) Cardiovascularly stable for discharge Follow up with Dr. Us
--- NOTE | 2017-12-03 16:46 | MR ---
cc: Morgan Scott DO DATE: 12/03/2017 PROCEDURE: Medtronic Reveal LINQ loop recorder placement (serial number [id number]), moderate sedation 15 minutes. PREPROCEDURE DIAGNOSES: 1. Syncope of unknown cause. 2. Mild bradycardia. 3. Atrial fibrillation. POSTPROCEDURE DIAGNOSIS: Syncope, status post loop recorder placement. MEDICATIONS: Versed 1 mg, fentanyl 50 mcg, vancomycin 1 gram. ESTIMATED BLOOD LOSS: Minimal. INDICATIONS FOR PROCEDURE: Ms. Jadyn Rasheed is a pleasant 77-year-old female who sees my partner, Dr. Us, in the office and presented after a syncopal episode. As there was no cause noted. I felt that it was necessary to place a loop recorder to further evaluate for possible arrhythmias or significant AV blocks. Risks, benefits, and alternatives were explained to her and she consented to such. She was brought to the lab and prepped in the usual sterile fashion. Left of the sternum was anesthetized with lidocaine. She was given 1 gram of vancomycin IV. A small incision was placed over the left chest wall. A Medtronic loop recorder was then injected underneath the skin. Pressure was held for hemostasis. The patient tolerated the procedure well. She left the laboratory aide cardiovascularly stable. HARDWARE: Medtronic Reveal LINQ [id number], (serial number [id number]). R-WAVE: 0.30 millivolts. SETTINGS: Tachycardia greater than 154 beats per minute, bradycardia less than 30 beats per minute. IMPRESSION: 1. Syncope of unknown cause. 2. Placement of a Medtronic loop recorder, as above. RECOMMENDATIONS: 1. Ms. Rasheed underwent loop recorder placement as above. 2. She is cardiovascularly stable to be discharged later today. 3. She will follow up with Dr. Us as previously scheduled. Thank you for allowing me to see Jadyn Rasheed. If there are any questions, please do not hesitate to call. Morgan Scott DO VGP/pw , 03:21 PM , 03:29 PM
== END 2017-12-03 14:00 | disposition home or self-care (01) ==
LOC: NEPE 20:53 → NEDA 23:02 → NEPE 12-02 00:22 → NEPGCP 12-02 00:30
PROVIDERS: ADMIT Hospitalist; ATTEND Hospitalist